=== PATIENT | female | born 1980 | race Caucasian/White ===

== ENCOUNTER 2016-11-29 15:58 | Emergency (ER) | payer OTHER ==
[~2016-11-29 15:58] MED LIST: AMLO5TAB4 PO; HYDR-548 PO; SUMA50TA PO
== END 2016-11-30 16:00 | disposition left against medical advice (07) ==
LOC: ER 11-30 10:22
DX: R05 Cough (principal); Z53.21 Procedure and treatment not carried out due to patient leaving prior to being seen by health care provider

== ENCOUNTER 2017-01-19 17:01 | Emergency (ER) | payer OTHER ==
[~2017-01-19] VITALS: Ht 170.2 cm; Wt 108.0 kg
--- NOTE | 2017-01-19 17:38 | NUR ---
Pt evaluated by MD for VYAS, med refill provided. Patient discharged home in stable conditon. Written and verbal after care instructions given. Patient verbalizes understanding of instructions.
[2017-01-19 17:40] VITALS: BP 135/77
== END 2017-01-19 17:41 | disposition home or self-care (01) ==
LOC: ER 17:03
DX: Z76.0 Encounter for issue of repeat prescription (principal); I10 Essential (primary) hypertension; G43.909 Migraine, unspecified, not intractable, without status migrainosus; Z88.6 Allergy status to analgesic agent; Z88.8 Allergy status to other drugs, medicaments and biological substances
CPT/HCPCS: A4663

== ENCOUNTER 2017-02-21 15:18 | Emergency (ER) | payer OTHER ==
[~2017-02-21] VITALS: Ht 170.2 cm; Wt 93.0 kg
--- NOTE | 2017-02-21 15:50 | NUR ---
DR SIMPSON AT THE BEDSIDE FOR EVAL AND EXAM.
--- NOTE | 2017-02-21 16:07 | NUR ---
Patient discharged to home in stable conditon. Written and verbal after care instructions given. Patient verbalizes understanding of instructions.
[2017-02-21 16:15] VITALS: BP 102/79
== END 2017-02-21 16:15 | disposition home or self-care (01) ==
LOC: ER 15:20
DX: S83.92XA Sprain of unspecified site of left knee, initial encounter (principal); M25.462 Effusion, left knee; I10 Essential (primary) hypertension; G43.909 Migraine, unspecified, not intractable, without status migrainosus; Z88.6 Allergy status to analgesic agent; Z88.8 Allergy status to other drugs, medicaments and biological substances; W18.30XA Fall on same level, unspecified, initial encounter; Y93.89 Activity, other specified; Y99.8 Other external cause status; Y92.89 Other specified places as the place of occurrence of the external cause
CPT/HCPCS: A4663

== ENCOUNTER 2017-02-23 17:05 | Emergency (ER) | payer OTHER ==
[~2017-02-23] VITALS: Ht 167.6 cm; Wt 90.7 kg
[2017-02-23] MEDS ORDERED: IBUPROFEN 600 MG TABLET PO ONE (17:30)
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
[2017-02-23] MEDS ORDERED: IBUPROFEN 600 MG TABLET ONE (18:38)
--- NOTE | 2017-02-23 18:39 | NUR ---
Pt given d/c instructions, verbalized understanding.
== END 2017-02-23 18:42 | disposition home or self-care (01) ==
LOC: ER 17:06
DX: S83.92XA Sprain of unspecified site of left knee, initial encounter (principal); I10 Essential (primary) hypertension; G43.909 Migraine, unspecified, not intractable, without status migrainosus; Z88.6 Allergy status to analgesic agent; Z88.8 Allergy status to other drugs, medicaments and biological substances; V89.2XXA Person injured in unspecified motor-vehicle accident, traffic, initial encounter; Y93.89 Activity, other specified; Y99.8 Other external cause status; Y92.89 Other specified places as the place of occurrence of the external cause
CPT/HCPCS: 73562; A4663

== ENCOUNTER 2017-03-26 17:26 | Emergency (ER) | payer OTHER ==
[~2017-03-26] VITALS: Ht 170.2 cm; Wt 103.4 kg
[2017-03-26] MEDS ORDERED: AMLO5TAB4 PO (17:37)
--- NOTE | 2017-03-26 18:17 | NUR ---
Patient discharged to home in stable conditon. Written and verbal after care instructions given. Patient verbalizes understanding of instructions.
== END 2017-03-26 18:18 | disposition home or self-care (01) ==
LOC: ER 17:27
DX: G43.909 Migraine, unspecified, not intractable, without status migrainosus (principal); K04.7 Periapical abscess without sinus; I10 Essential (primary) hypertension; Z88.6 Allergy status to analgesic agent; Z88.8 Allergy status to other drugs, medicaments and biological substances
CPT/HCPCS: A4663

== ENCOUNTER 2017-05-24 17:46 | Emergency (ER) | payer OTHER ==
[~2017-05-24] VITALS: Ht 167.6 cm; Wt 103.4 kg
[~2017-05-24 17:46] MED LIST changes: -HYDR-548 PO; -SUMA50TA PO
[2017-05-24] MEDS ORDERED: SUMA50TA PO (18:10)
--- NOTE | 2017-05-24 18:29 | NUR ---
Patient discharged to home in stable conditon. Written and verbal after care instructions given to patient. Patient verbalizes understanding of instructions.
== END 2017-05-24 18:31 | disposition home or self-care (01) ==
LOC: ER 17:46
DX: G43.909 Migraine, unspecified, not intractable, without status migrainosus (principal); I10 Essential (primary) hypertension; Z88.6 Allergy status to analgesic agent; Z88.8 Allergy status to other drugs, medicaments and biological substances
CPT/HCPCS: 96372 ×2; 99284; A4663; J1200; J3030

== ENCOUNTER 2017-06-11 17:23 | Emergency (ER) | payer OTHER ==
[~2017-06-11] VITALS: Ht 167.6 cm; Wt 108.0 kg
[~2017-06-11 17:23] MED LIST changes: -AMLO5TAB4 PO; +SUMA50TA PO
[2017-06-11] MEDS ORDERED: AMOX500C2 PO (17:48)
--- NOTE | 2017-06-11 18:25 | NUR ---
Patient discharged to home in stable conditon. Written and verbal after care instructions given. Patient verbalizes understanding of instructions.pt walks in steady gait. pt not driving. family member taking pt home
== END 2017-06-11 18:29 | disposition home or self-care (01) ==
LOC: ER 17:23
DX: K08.89 Other specified disorders of teeth and supporting structures (principal); I10 Essential (primary) hypertension; G43.909 Migraine, unspecified, not intractable, without status migrainosus; Z88.6 Allergy status to analgesic agent
CPT/HCPCS: A4663; J1170; J2405

== ENCOUNTER 2017-09-11 12:23 | Emergency (ER) | payer OTHER ==
[~2017-09-11] VITALS: Ht 167.6 cm; Wt 108.0 kg
[~2017-09-11 12:23] MED LIST changes: +AMOX500C2 PO
[2017-09-11] MEDS ORDERED: ALBUTEROL SULFATE 2.5 MG/3 ML NEBU NEB ONE (13:00)
[2017-09-11] MEDS ORDERED: ALBUTEROL SULFATE 2.5 MG/3 ML NEBU ONE (13:20)
--- NOTE | 2017-09-11 13:54 | NUR ---
Patient discharged to home in stable conditon. Written and verbal after care instructions given. Patient verbalizes understanding of instructions.
== END 2017-09-11 13:54 | disposition home or self-care (01) ==
LOC: ER 12:23
DX: J40 Bronchitis, not specified as acute or chronic (principal); Z88.5 Allergy status to narcotic agent; Z87.891 Personal history of nicotine dependence; G43.909 Migraine, unspecified, not intractable, without status migrainosus
CPT/HCPCS: 71045; A4663

== ENCOUNTER 2018-02-16 14:48 | Emergency (ER) | payer OTHER ==
[~2018-02-16] VITALS: Ht 167.6 cm; Wt 106.6 kg
--- NOTE | 2018-02-16 16:17 | NUR ---
Pt resting in [place] with NAD noted, pending MSE.
--- NOTE | 2018-02-16 18:15 | NUR ---
pt still awaiting for md mcintosh.
--- NOTE | 2018-02-16 18:59 | NUR ---
mse completed, pt d/c'd home, aci.rx x5 given. pt ambulated w/o diff/took all belongings.
[2018-02-16 19:01] VITALS: BP 128/72
== END 2018-02-16 19:02 | disposition home or self-care (01) ==
LOC: ER 14:51
DX: M54.9 Dorsalgia, unspecified (principal); Z90.89 Acquired absence of other organs; Z88.5 Allergy status to narcotic agent; Z88.8 Allergy status to other drugs, medicaments and biological substances
CPT/HCPCS: 99281; A4663

== ENCOUNTER 2018-06-14 11:38 | Emergency (ER) | payer OTHER ==
[~2018-06-14] VITALS: Ht 170.2 cm; Wt 105.2 kg
--- NOTE | 2018-06-14 12:01 | NUR ---
Patient discharged to home in stable conditon. Written and verbal after care instructions given. Patient verbalizes understanding of instructions.pt waks in steady gait.
== END 2018-06-14 12:03 | disposition home or self-care (01) ==
LOC: ER 11:38
DX: R51 Headache (principal); Z88.5 Allergy status to narcotic agent; Z88.8 Allergy status to other drugs, medicaments and biological substances; Z90.89 Acquired absence of other organs
CPT/HCPCS: 99283; A4663

== ENCOUNTER 2018-06-26 16:59 | Emergency (ER) | payer OTHER ==
[~2018-06-26] VITALS: Ht 170.2 cm; Wt 105.2 kg
--- NOTE | 2018-06-26 17:51 | NUR ---
DR SIMPSON AT THE BEDSIDE FOR MSE.
--- NOTE | 2018-06-26 18:05 | NUR ---
Patient discharged to home in stable conditon. Written and verbal after care instructions given. Patient verbalizes understanding of instructions.
[2018-06-26 18:07] VITALS: BP 122/86
== END 2018-06-26 18:07 | disposition home or self-care (01) ==
LOC: ER 17:01
DX: J32.9 Chronic sinusitis, unspecified (principal); Z88.5 Allergy status to narcotic agent; Z88.8 Allergy status to other drugs, medicaments and biological substances; Z90.89 Acquired absence of other organs
CPT/HCPCS: A4663

== ENCOUNTER 2018-10-01 16:57 | Emergency (ER) | payer OTHER ==
[~2018-10-01] VITALS: Ht 170.2 cm; Wt 105.2 kg
[2018-10-01] MEDS ORDERED: SUMATRIPTAN SUCCINATE 6 MG/0.5 ML VIAL SQ ONE ×2 (17:45)
--- NOTE | 2018-10-01 17:47 | NUR ---
PT WAS EVALUATED BY DR JACOBS. PT WAS D/C'd TO HOME. D/C INSTRUCTIONS GIVEN TO THE PT.
[2018-10-01 17:48] VITALS: BP 132/75
== END 2018-10-01 17:49 | disposition home or self-care (01) ==
LOC: ER 16:59
DX: G43.909 Migraine, unspecified, not intractable, without status migrainosus (principal); Z88.5 Allergy status to narcotic agent; Z88.8 Allergy status to other drugs, medicaments and biological substances
CPT/HCPCS: 96372; 99283; J3030; A4663

== ENCOUNTER 2018-11-29 17:43 | Emergency (ER) | payer OTHER ==
[~2018-11-29] VITALS: Ht 170.2 cm; Wt 103.4 kg
--- NOTE | 2018-11-29 18:15 | NUR ---
Urine specimen was requested, pending MD evaluation@this time
--- NOTE | 2018-11-29 18:54 | NUR ---
Patient is changing to hospital gown@this time, for possible incision and drainage of abscess?? to groin area.
[2018-11-29] MEDS ORDERED: LIDOCAINE HCL 1% 20 ML VIAL TP ONE (19:00)
[2018-11-29] MEDS ORDERED: SULFAMETH/TRIMETH 800/160 MG TABLET PO ONE (19:15)
--- NOTE | 2018-11-29 19:15 | NUR ---
Hands off report given to JOANIE Edwards
[2018-11-29] MEDS ORDERED: SULFAMETH/TRIMETH 800/160 MG TABLET ONE (19:38)
--- NOTE | 2018-11-29 19:40 | NUR ---
Patient discharged to home in stable conditon. Written and verbal after care instructions given. Patient verbalizes understanding of instructions. WAKED OUT OF ER WITH NO DISTRESS NOTED
[2018-11-29 19:41] VITALS: BP 150/99
== END 2018-11-29 19:42 | disposition home or self-care (01) ==
LOC: ER 17:47
DX: N75.1 Abscess of Bartholin's gland (principal); Z88.5 Allergy status to narcotic agent; Z88.8 Allergy status to other drugs, medicaments and biological substances; Z90.89 Acquired absence of other organs
CPT/HCPCS: 56420; 99283; J3490; A4663

== ENCOUNTER 2018-12-21 14:13 | Emergency (ER) | payer OTHER ==
[~2018-12-21] VITALS: Ht 167.6 cm; Wt 98.9 kg
--- NOTE | 2018-12-21 14:30 | NUR ---
PT A/OX4, PRESENTS TO THE ER C/O HEADACHE. PT REPORTS HX OF MIGRAINES, PAIN IS NON-PROVOKED, ACHING IN QUALITY, DOES NOT RADIATE, 6/10, CONSTANT. PT DENIES LIGHT SENSITIVITY. SECONDARY COMPLAINT: ANXIETY, LACK OF SLEEP. VSS. PT DENIES C/P, SOB, N/V/D, DIZZINESS, HEADACHE.
--- NOTE | 2018-12-21 14:33 | NUR ---
NO FACIAL DROOP, SMILE EQUAL, NO HEMILATERAL WEAKNESS, HAND PHONE SCREENER EQUAL, PT IS ABLE TO SELF-AMBULATE W/O DIFFICULTY, NO SLURRED SPEECH.
--- NOTE | 2018-12-21 14:34 | NUR ---
DEJA CASTILLO AT BEDSIDE FOR MSE.
[2018-12-21] MEDS ORDERED: HYDROCODONE/APAP 5-325MG TABLET PO ONE (14:45)
[2018-12-21] MEDS ORDERED: ONDANSETRON ODT 4 MG TAB.RAPDIS SL ONE (14:45)
[2018-12-21] MEDS ORDERED: ONDANSETRON ODT 4 MG TAB.RAPDIS ONE (14:48)
[2018-12-21] MEDS ORDERED: HYDROCODONE/APAP 5-325MG TABLET ONE (14:49)
[2018-12-21 14:51] VITALS: BP 112/62
--- NOTE | 2018-12-21 14:51 | NUR ---
Patient discharged to home in stable conditon. Written and verbal after care instructions given. Patient verbalizes understanding of instructions. PT D/C W/ PRESCRIPTIONS. PT SELF-AMBULATED W/O DIFFICULTY. ALL BELONGINGS W/ PT. PT STATES SHE WILL WALK HOME.
== END 2018-12-21 14:52 | disposition home or self-care (01) ==
LOC: ER 14:13
DX: G43.909 Migraine, unspecified, not intractable, without status migrainosus (principal); Z76.0 Encounter for issue of repeat prescription; Z88.5 Allergy status to narcotic agent; Z88.8 Allergy status to other drugs, medicaments and biological substances; Z90.89 Acquired absence of other organs
CPT/HCPCS: A4663; Q0162

== ENCOUNTER 2019-02-13 13:49 | Emergency (ER) | payer OTHER ==
[~2019-02-13] VITALS: Ht 170.2 cm; Wt 103.4 kg
[2019-02-13 14:13] VITALS: BP 128/95
--- NOTE | 2019-02-13 14:13 | NUR ---
Patient discharged to home in stable conditon. Written and verbal after care instructions given. Patient verbalizes understanding of instructions.
== END 2019-02-13 14:14 | disposition home or self-care (01) ==
LOC: ER 13:49
DX: G43.909 Migraine, unspecified, not intractable, without status migrainosus (principal); Z76.0 Encounter for issue of repeat prescription; Z88.5 Allergy status to narcotic agent; Z88.8 Allergy status to other drugs, medicaments and biological substances; Z90.89 Acquired absence of other organs
CPT/HCPCS: A4663

== ENCOUNTER 2019-03-11 02:49 | Emergency (ER) | payer OTHER ==
[~2019-03-11] VITALS: Ht 170.2 cm; Wt 103.4 kg
[2019-03-11] MEDS ORDERED: SUMATRIPTAN 50 MG (03:10)
[2019-03-11] MEDS ORDERED: SERTRALINE HCL 25 MG TABLET (03:10)
[2019-03-11] MEDS ORDERED: HYDROMORPHONE 1 MG/1 ML DISP.SYRIN ONE (03:26)
[2019-03-11] MEDS ORDERED: ONDANSETRON 4 MG/2 ML VIAL ONE (03:26)
[2019-03-11] MEDS ORDERED: HYDROMORPHONE 1 MG/1 ML DISP.SYRIN IM ONE (03:30)
[2019-03-11] MEDS ORDERED: ONDANSETRON 4 MG/2 ML VIAL IM ONE (03:30)
--- NOTE | 2019-03-11 03:40 | NUR ---
PT IS ALERT AND ORIENTED TIME FOUR OVERALL APPEARANCES FAIR C/O WISDOM TEETH PAIN WILL GO TO THE DENTIST TUESDAY THIS HAPPEN AT 2 AM AFTER EATING HARD TOAST PAIN LEVEL 10
--- NOTE | 2019-03-11 03:47 | NUR ---
WAS MED TIME ONE WITH PAULINE AND KRISTAN DENIES ALLERGIES MEDS TEACHING GIVEN DID WANTS TO WAIT 30 MINUTES BUT DID STATE SHE WOULD WAIT FOR UBER TO TAKE HER HOME
[2019-03-11 03:49] VITALS: BP 148/80
== END 2019-03-11 03:51 | disposition home or self-care (01) ==
LOC: ER 02:49
DX: G43.909 Migraine, unspecified, not intractable, without status migrainosus (principal); K08.89 Other specified disorders of teeth and supporting structures; Z90.89 Acquired absence of other organs; Z79.899 Other long term (current) drug therapy
CPT/HCPCS: 96372 ×2; 99283; J1170; J2405; A4663

== ENCOUNTER 2019-04-24 01:24 | Emergency (ER) | payer OTHER ==
[~2019-04-24] VITALS: Ht 167.6 cm; Wt 108.0 kg
[~2019-04-24 01:24] MED LIST changes: -AMOX500C2 PO; +SERTRALINE HCL 25 MG TABLET; -SUMA50TA PO; +SUMATRIPTAN 50 MG
--- NOTE | 2019-04-24 01:45 | NUR ---
Patient ambulated with stable gait. Speech is clear, speaks in complete sentences. No neuro deficits noted. Patient came for c/o a tampon possibly lodged/stuck in her vagina for a few weeks now. Additionally she has been c/o toothache on the right side for 8 weeks now. Respiratory even and unlabored, no cough no sob. No cardiovascular distress noted, all pulses palpable. No GI/ distress noted. Patient in bed at lowest position, sr upx2, call light within reach. Fall precautions implemented per protocol.
[2019-04-24 01:55] LABS: *BILIRUBIN,URIN NEGATIVE (NEGATIVE); *BLOOD, URINE NEGATIVE (NEGATIVE); *CLARITY,URINE CLEAR (CLEAR); *COLOR,URINE YELLOW (YELLOW); *KETONES,URINE NEGATIVE (NEGATIVE); *UROBILINOGEN,URINE 0.2 E.U./dl (NORMAL); LEUKOCYTE ESTERASE ,URINE NEGATIVE (NEGATIVE); NITRITE, URINE NEGATIVE (NEGATIVE); PH,URINE 5.5 (5.0-8.0); UGLUCOSE NEGATIVE (NEGATIVE)
--- NOTE | 2019-04-24 01:56 | NUR ---
ERMD at bedside for MSE
[2019-04-24 01:57] LABS: *URINE HCG, QUAL NEGATIVE (NEGATIVE)
--- NOTE | 2019-04-24 02:18 | NUR ---
Female delivery driver, JOANIE Galvez, accompanied female patient for Dr. Garcia. Addendum: 04/24/19 at 0219 by ASHANTI for pelvic exam
--- NOTE | 2019-04-24 02:21 | NUR ---
Sasha matthew in ED - 04/24/19 at 0223 by ASHANTI Patient is medically cleared to be booked. Patient discharged with [facility] in stable conditon. Written and verbal after care instructions given. Patient verbalizes understanding of instructions.
--- NOTE | 2019-04-24 02:37 | NUR ---
Patient discharged to home in stable conditon. Written and verbal after care instructions given. Patient verbalizes understanding of instructions. Patient ambulated with stable gait.
[2019-04-24 03:05] VITALS: BP 142/81
== END 2019-04-24 02:37 | disposition home or self-care (01) ==
LOC: ER 01:31
DX: N76.0 Acute vaginitis (principal); G43.909 Migraine, unspecified, not intractable, without status migrainosus; Z88.8 Allergy status to other drugs, medicaments and biological substances; Z79.899 Other long term (current) drug therapy; Z90.89 Acquired absence of other organs
CPT/HCPCS: 84703; 87210; A4663

== ENCOUNTER 2019-06-26 09:22 | Emergency (ER) | payer OTHER ==
[~2019-06-26] VITALS: Ht 167.6 cm; Wt 106.6 kg
[2019-06-26] MEDS ORDERED: LORAZEPAM 2 MG/1 ML VIAL ONE (09:38)
--- NOTE | 2019-06-26 09:43 | NUR ---
pt ambulated with stable gait, c/o migraine with nausea and vomiting. speech clear able to make needs known, a&o x3. no acute neuro deficits noted. Breathing even and unlabored, no SOB noted. no cardiovascular distress noted. pulses palpable. cap refill <3 sec. Denies any distress. Bed low, call light within reach, siderails up x2, fall precautions implemented per protocol
[2019-06-26] MEDS ORDERED: IV NORMAL SALINE 1000 ML BAG IV ONE (09:45)
[2019-06-26] MEDS ORDERED: LORAZEPAM 2 MG/1 ML VIAL IV ONE (09:45)
--- NOTE | 2019-06-26 11:24 | NUR ---
Patient discharged to home in stable conditon. Written and verbal after care instructions given. pt made aware not to drive. Patient verbalizes understanding of instructions. pt ambulated in stable gait. denies any nausea, vomiting, or discomfort
[2019-06-26 11:40] VITALS: BP 129/81
== END 2019-06-26 11:24 | disposition home or self-care (01) ==
LOC: ER 09:22
DX: G43.909 Migraine, unspecified, not intractable, without status migrainosus (principal); Z90.89 Acquired absence of other organs; Z88.8 Allergy status to other drugs, medicaments and biological substances; Z79.899 Other long term (current) drug therapy
CPT/HCPCS: 96374; 99283; J2060; A4663; J7030

== ENCOUNTER 2019-10-18 11:00 | Emergency (ER) | payer OTHER ==
[~2019-10-18] VITALS: Ht 167.6 cm; Wt 106.6 kg
--- NOTE | 2019-10-18 11:27 | NUR ---
Dr Garcia at the bedside for MSE.
[2019-10-18 11:50] LABS: BASOPHILS % (AUTO) 0.6 % (0.0-2.0); EOSINOPHILS # (AUTO) 0.2 K/uL (0.0-0.7); EOSINOPHILS % (AUTO) 1.9 % (0.0-7.0); HEMATOCRIT 41.5 % (31.2-41.9); HEMOGLOBIN 14.2 g/dL (10.9-14.3); LYMPHOCYTES # (AUTO) 3.2 K/uL (20.0-40.0); MEAN CORPUSCULAR HEMOGLOBIN 27.8 uug (24.7-32.8); MEAN CORPUSCULAR HGB CONC 34 g/dL (32.3-35.6); MEAN CORPUSCULAR VOLUME 81.1 fL (75.5-95.3); MONOCYTES # (AUTO) 0.7 K/uL (2.0-10.0); MONOCYTES % (AUTO) 7.9 % (0.0-11.0); NEUTROPHILS # (AUTO) 4.2 K/uL (1.8-8.9); NEUTROPHILS % (AUTO) 50.6 % (38.5-71.5); PLATELET COUNT (AUTO) 153 K/uL (179-408); RED BLOOD CELL COUNT(AUTO) 5.12 MIL/uL (3.63-4.92); WHITE BLOOD COUNT (AUTO) 8.3 K/uL (3.8-11.8)
[2019-10-18 11:55] LABS: CREATININE 0.7 mg/dL (0.6-1.3); POTASSIUM 3.8 mmol/L (3.5-5.1)
[2019-10-18 12:01] LABS: BILIRUBIN,DIRECT 0.1 mg/dL (0.0-0.2); BILIRUBIN,TOTAL 0.5 mg/dL (0.2-1.0); TOTAL PROTEIN, SERUM 7.5 g/dL (6.4-8.2)
--- NOTE | 2019-10-18 12:38 | NUR ---
Patient discharged to home in stable conditon. Written and verbal after care instructions given. Patient verbalizes understanding of instructions.
[2019-10-18 12:39] VITALS: BP 115/78
== END 2019-10-18 12:40 | disposition home or self-care (01) ==
LOC: ER 11:00
DX: S13.4XXA Sprain of ligaments of cervical spine, initial encounter (principal); H81.10 Benign paroxysmal vertigo, unspecified ear; R20.2 Paresthesia of skin; Z90.89 Acquired absence of other organs; Z88.8 Allergy status to other drugs, medicaments and biological substances; Z79.899 Other long term (current) drug therapy; X58.XXXA Exposure to other specified factors, initial encounter; Y92.89 Other specified places as the place of occurrence of the external cause; Y93.89 Activity, other specified; Y99.8 Other external cause status
CPT/HCPCS: 36415; 85025; 93005; A4663

== ENCOUNTER 2020-01-29 02:30 | Emergency (ER) | payer OTHER ==
[~2020-01-29] VITALS: Ht 167.6 cm; Wt 102.1 kg
--- NOTE | 2020-01-29 03:00 | NUR ---
Dr. Jordan at bedside for MSE
--- NOTE | 2020-01-29 03:07 | NUR ---
Patient discharged to home in stable condition. Written and verbal after care instructions given. Patient verbalizes understanding of instructions. Stressed follow up or return to ER for worsening s/s. Patient ambulating with steady gait. NAD noted
[2020-01-29 03:13] VITALS: BP 124/70
== END 2020-01-29 03:08 | disposition home or self-care (01) ==
LOC: ER 02:35
DX: H11.32 Conjunctival hemorrhage, left eye (principal); G43.909 Migraine, unspecified, not intractable, without status migrainosus
CPT/HCPCS: A4663

== ENCOUNTER 2020-03-13 12:45 | Emergency (ER) | payer OTHER ==
[~2020-03-13] VITALS: Ht 167.6 cm; Wt 87.1 kg
--- NOTE | 2020-03-13 12:55 | NUR ---
Dr. Garcia at bedside for MSE
[2020-03-13] MEDS ORDERED: IV NORMAL SALINE 1000 ML BAG IV ONE ×2 (13:15→14:15)
[2020-03-13] MEDS ORDERED: METOCLOPRAMIDE HCL 10 MG/2 ML VIAL ONE (13:15)
[2020-03-13] MEDS ORDERED: METOCLOPRAMIDE HCL 10 MG/2 ML VIAL IV ONE (13:15)
[2020-03-13] MEDS ORDERED: KETOROLAC TROMETHAMINE 30 MG INJ IVP ONE (13:15)
[2020-03-13] MEDS ORDERED: ONDANSETRON 4 MG/2 ML VIAL IV ONE (13:15)
[2020-03-13] MEDS ORDERED: diphenhydrAMINE 50 MG/1 ML VIAL ONE ×2 (13:15→13:32)
[2020-03-13] MEDS ORDERED: KETOROLAC TROMETHAMINE 30 MG INJ ONE ×2 (13:15→13:31)
[2020-03-13] MEDS ORDERED: diphenhydrAMINE 50 MG/1 ML VIAL IV ONE (13:15)
[2020-03-13] MEDS ORDERED: MORPHINE SULFATE 4 MG/1 ML DISP.SYRIN ONE (13:58)
[2020-03-13] MEDS ORDERED: MORPHINE SULFATE 4 MG/1 ML DISP.SYRIN IV ONE (14:00)
--- NOTE | 2020-03-13 15:21 | NUR ---
IV removed. Catheter intact and site benign. Pressure and 4x4 gauze applied to site. No bleeding noted.Patient discharged to home in stable condition. Written and verbal after care instructions given. Patient verbalizes understanding of instructions. Stressed follow up or return to ER for worsening s/s. Patient ambulating with steady gait. NAD noted
[2020-03-13 15:24] VITALS: BP 143/83
== END 2020-03-13 15:21 | disposition home or self-care (01) ==
LOC: ER 12:45
DX: G43.909 Migraine, unspecified, not intractable, without status migrainosus (principal); R11.2 Nausea with vomiting, unspecified; T43.225A Adverse effect of selective serotonin reuptake inhibitors, initial encounter; Y92.89 Other specified places as the place of occurrence of the external cause; R03.0 Elevated blood-pressure reading, without diagnosis of hypertension
CPT/HCPCS: 96361; 96374; 96375; 99284; J1200; J1885; J2270; J2765; A4663; J7030

== ENCOUNTER 2020-07-07 12:24 | Emergency (ER) | payer OTHER ==
[~2020-07-07] VITALS: Ht 167.6 cm; Wt 98.9 kg
[2020-07-07] MEDS ORDERED: MAGNESIUM SULFATE/D5W 100 ML IV SCH (13:15)
[2020-07-07] MEDS ORDERED: METOCLOPRAMIDE HCL 10 MG/2 ML VIAL IV ONE (13:15)
[2020-07-07] MEDS ORDERED: IV NORMAL SALINE 1000 ML BAG IV ONE (13:15)
[2020-07-07] MEDS ORDERED: diphenhydrAMINE 50 MG/1 ML VIAL IV ONE (13:15)
[2020-07-07] MEDS ORDERED: KETOROLAC TROMETHAMINE 15 MG INJ IVP ONE (13:15)
[2020-07-07] MEDS ORDERED: METOCLOPRAMIDE HCL 10 MG/2 ML VIAL ONE (13:25)
[2020-07-07] MEDS ORDERED: diphenhydrAMINE 50 MG/1 ML VIAL ONE (13:25)
[2020-07-07] MEDS ORDERED: KETOROLAC TROMETHAMINE 15 MG INJ ONE (13:25)
[2020-07-07] MEDS ORDERED: MAGNESIUM SULFATE/D5W 100 ML ONE (13:26)
[2020-07-07 13:27] LABS: BASOPHILS # (AUTO) 0.1 K/uL (0.0-8.0); BASOPHILS % (AUTO) 0.7 % (0.0-2.0); EOSINOPHILS # (AUTO) 0.1 K/uL (0.0-0.7); EOSINOPHILS % (AUTO) 1.2 % (0.0-7.0); HEMATOCRIT 41.6 % (31.2-41.9); HEMOGLOBIN 14.4 g/dL (10.9-14.3); LYMPHOCYTES % (AUTO) 19.2 % (20.5-51.5); MEAN CORPUSCULAR HEMOGLOBIN 27.9 uug (24.7-32.8); MEAN CORPUSCULAR HGB CONC 35 g/dL (32.3-35.6); MEAN CORPUSCULAR VOLUME 80.4 fL (75.5-95.3); MONOCYTES # (AUTO) 0.6 K/uL (2.0-10.0); MONOCYTES % (AUTO) 5.5 % (0.0-11.0); NEUTROPHILS # (AUTO) 7.5 K/uL (1.8-8.9); NEUTROPHILS % (AUTO) 73.4 % (38.5-71.5); PLATELET COUNT (AUTO) 199 K/uL (179-408); RED BLOOD CELL COUNT(AUTO) 5.17 MIL/uL (3.63-4.92); WHITE BLOOD COUNT (AUTO) 10.2 K/uL (3.8-11.8)
[2020-07-07 13:34] LABS: CREATININE 0.6 mg/dL (0.6-1.3); POTASSIUM 4.3 mmol/L (3.5-5.1)
[2020-07-07 13:49] LABS: *URINE HCG, QUAL NEG (NEGATIVE)
[2020-07-07 13:58] LABS: *AMPHETAMINE, URINE NEGATIVE (NEGATIVE); *CANNABINOID, URINE NEGATIVE (NEGATIVE); *COCCAINE, URINE NEGATIVE (NEGATIVE); *PHENCYCLIDINE SCREEN,URINE NEGATIVE (NEGATIVE)
[2020-07-07 14:15] LABS: *OPIATE, URINE NEGATIVE (NEGATIVE)
--- NOTE | 2020-07-07 15:27 | NUR ---
Patient discharged to home in stable condition. Written and verbal after care instructions given. Patient verbalizes understanding of instructions. Stressed follow up or return to ER for worsening s/s.
[2020-07-07 15:29] VITALS: BP 127/74
== END 2020-07-07 15:29 | disposition home or self-care (01) ==
LOC: ER 12:24
DX: G43.909 Migraine, unspecified, not intractable, without status migrainosus (principal); R03.0 Elevated blood-pressure reading, without diagnosis of hypertension
CPT/HCPCS: 36415; 80048; 80307; 84703; 85025; 96365; 96375; 99284; J1200; J2765; J3475; A4663; J1885

== ENCOUNTER 2021-07-02 07:50 | Emergency (ER) | payer OTHER ==
[~2021-07-02] VITALS: Ht 170.2 cm; Wt 95.3 kg
[2021-07-02] MEDS ORDERED: NEOMYCIN SULFATE (08:00)
[2021-07-02] MEDS ORDERED: CIPR7.5D RIGHT EAR (08:27)
== END 2021-07-02 08:32 | disposition home or self-care (01) ==
LOC: ER 07:50
DX: H60.91 Unspecified otitis externa, right ear (principal)
CPT/HCPCS: A4663

== ENCOUNTER 2022-05-23 13:44 | Emergency (ER) | payer OTHER ==
[~2022-05-23] VITALS: Ht 165.1 cm; Wt 108.9 kg
[~2022-05-23 13:44] MED LIST changes: +CIPR7.5D RIGHT EAR; +NEOMYCIN SULFATE
[2022-05-23] MEDS ORDERED: IV NORMAL SALINE 1000 ML BAG IV ONE (14:15)
[2022-05-23] MEDS ORDERED: MORPHINE SULFATE 2 MG/1 ML DISP.SYRIN IV ONE (14:15)
[2022-05-23] MEDS ORDERED: ONDANSETRON 4 MG/2 ML VIAL IV ONE (14:15)
[2022-05-23 14:31] LABS: *BILIRUBIN,URIN NEGATIVE (NEGATIVE); *BLOOD, URINE 2+ (NEGATIVE); *CLARITY,URINE CLEAR (CLEAR); *COLOR,URINE YELLOW (YELLOW); *KETONES,URINE NEGATIVE (NEGATIVE); *UROBILINOGEN,URINE 0.2 E.U./dl (NORMAL); LEUKOCYTE ESTERASE ,URINE NEGATIVE (NEGATIVE); NITRITE, URINE NEGATIVE (NEGATIVE); UGLUCOSE NEGATIVE (NEGATIVE)
[2022-05-23] MEDS ORDERED: ONDANSETRON 4 MG/2 ML VIAL ONE (14:34)
[2022-05-23] MEDS ORDERED: MORPHINE SULFATE 4 MG/1 ML DISP.SYRIN ONE (14:35)
[2022-05-23 14:37] LABS: *URINE HCG, QUAL NEGATIVE (NEGATIVE)
[2022-05-23 14:43] LABS: WBC,URINE 0-3 /HPF (0-3)
[2022-05-23 14:44] LABS: BACTERIA,URINE NONE SEEN /HPF (NONE SEEN); SQUAMOUS EPITHELIAL CELL,UR FEW /HPF (NONE SEEN)
[2022-05-23 14:57] LABS: HEMATOCRIT 40.4 % (31.2-41.9); MEAN CORPUSCULAR HEMOGLOBIN 27.8 uug (24.7-32.8); MEAN CORPUSCULAR VOLUME 80.6 fL (75.5-95.3); PLATELET COUNT (AUTO) 193 K/uL (179-408)
[2022-05-23 15:22] LABS: BILIRUBIN,DIRECT 0.1 mg/dL (0.0-0.2); BILIRUBIN,TOTAL 0.6 mg/dL (0.2-1.0); CREATININE 0.9 mg/dL (0.6-1.3); POTASSIUM 3.7 mmol/L (3.5-5.1); TOTAL PROTEIN, SERUM 7.6 g/dL (6.4-8.2)
[2022-05-23] MEDS ORDERED: KETOROLAC TROMETHAMINE 30 MG INJ ONE (16:43)
[2022-05-23] MEDS ORDERED: TAMSULOSIN HCL 0.4 MG CAP.SR.24H ONE (16:44)
[2022-05-23] MEDS ORDERED: TAMSULOSIN HCL 0.4 MG CAP.SR.24H PO ONE (16:45)
[2022-05-23] MEDS ORDERED: KETOROLAC TROMETHAMINE 30 MG INJ IVP ONE (16:45)
[2022-05-23] MEDS ORDERED: TAMS-3 PO (16:52)
[2022-05-23] MEDS ORDERED: HYDR-4209 PO (16:52)
[2022-05-23] MEDS ORDERED: ONDA4TAB11 PO (16:52)
--- NOTE | 2022-05-23 16:58 | NUR ---
Pt. arrived with cc of left-sided flank pain, located from the groin around the abd radiating to the back. Ordered rx administered, will continue to monitor and reassess pain.
--- NOTE | 2022-05-23 17:15 | NUR ---
Pt. d/c to home in stable condition. No distress noted. Upon reassessment, patient stated her pain has been alleviated, rated 3-4/10. Normal physical mobility restored, no guarding and withdrawal from touch observed. D/c instructions were given, pt. verbalized understanding.
[2022-05-23 17:43] VITALS: BP 132/89
== END 2022-05-23 17:15 | disposition home or self-care (01) ==
LOC: ER 13:46
DX: N13.2 Hydronephrosis with renal and ureteral calculous obstruction (principal); R11.0 Nausea
CPT/HCPCS: 99284; 74176; 96374; 96361; 96375; 80076; 80048; 81001; 84703; 83690; 85025; 36415; J1885; J2405; J2270; J7040; A4663

== ENCOUNTER 2022-07-05 09:11 | Emergency (ER) | payer OTHER ==
[~2022-07-05] VITALS: Ht 167.6 cm; Wt 99.8 kg
[~2022-07-05 09:11] MED LIST changes: +HYDR-4209 PO; +ONDA4TAB11 PO; +TAMS-3 PO
--- NOTE | 2022-07-05 09:22 | NUR ---
Dr Kramer at the bedside for MSE.
[2022-07-05] MEDS ORDERED: TRIA15OI9 TP (09:32)
--- NOTE | 2022-07-05 09:46 | NUR ---
Gave pt RX and d/c instructions, pt verbalized understanding.
== END 2022-07-05 09:47 | disposition home or self-care (01) ==
LOC: ER 09:11
DX: L25.9 Unspecified contact dermatitis, unspecified cause (principal)
CPT/HCPCS: A4663

== ENCOUNTER 2023-08-19 09:46 | Emergency (ER) | payer OTHER ==
[~2023-08-19] VITALS: Ht 167.6 cm; Wt 99.8 kg
[~2023-08-19 09:46] MED LIST changes: +TRIA15OI9 TP
[2023-08-19 10:46] VITALS: BP 138/74; TEMP 98; O2SAT 96
== END 2023-08-19 10:47 | disposition home or self-care (01) ==
LOC: ER 09:46
DX: S83.92XA Sprain of unspecified site of left knee, initial encounter (principal); G43.909 Migraine, unspecified, not intractable, without status migrainosus; Z90.89 Acquired absence of other organs; Z79.2 Long term (current) use of antibiotics; Z79.899 Other long term (current) drug therapy; X50.1XXA Overexertion from prolonged static or awkward postures, initial encounter; Y93.89 Activity, other specified; Y92.89 Other specified places as the place of occurrence of the external cause; Y99.8 Other external cause status
CPT/HCPCS: A4606; A4663

== ENCOUNTER 2024-06-07 12:17 | Emergency (ER) | payer OTHER ==
[~2024-06-07] VITALS: Ht 167.6 cm; Wt 99.8 kg
[2024-06-07 13:35] VITALS: BP 144/87; O2SAT 98
== END 2024-06-07 13:35 | disposition home or self-care (01) ==
LOC: ER 12:17
DX: J34.0 Abscess, furuncle and carbuncle of nose (principal); G43.909 Migraine, unspecified, not intractable, without status migrainosus; Z90.89 Acquired absence of other organs; Z79.899 Other long term (current) drug therapy; Z88.7 Allergy status to serum and vaccine
CPT/HCPCS: A4606; A4663

== ENCOUNTER 2024-12-15 21:20 | Inpatient (IN) | payer OTHER ==
[~2024-12-15] VITALS: Ht 170.2 cm; Wt 133.8 kg
[2024-12-15 22:08] LABS: BASOPHILS # (AUTO) 0.1 K/UL (0.0-0.2); BASOPHILS % (AUTO) 0.9 % (0.0-2.0); EOSINOPHILS # (AUTO) 0.3 K/uL (0.0-0.7); EOSINOPHILS % (AUTO) 2.1 % (0.0-7.0); HEMATOCRIT 42.5 % (31.2-41.9); HEMOGLOBIN 14.1 g/dL (10.9-14.3); LYMPHOCYTES # (AUTO) 4.1 K/uL (0.8-4.8); MEAN CORPUSCULAR HEMOGLOBIN 27.1 uug (24.7-32.8); MEAN CORPUSCULAR HGB CONC 33 g/dL (32.3-35.6); MEAN CORPUSCULAR VOLUME 81.5 fL (75.5-95.3); MONOCYTES # (AUTO) 1.2 K/uL (0.1-1.30); MONOCYTES % (AUTO) 10.3 % (0.0-11.0); NEUTROPHILS # (AUTO) 6.3 K/uL (1.8-8.9); NEUTROPHILS % (AUTO) 52.7 % (38.5-71.5); PLATELET COUNT (AUTO) 191 K/uL (179-408); RED BLOOD CELL COUNT(AUTO) 5.21 MIL/uL (3.63-4.92); RED CELL DISTRIBUTION WIDTH 13.9 % (12.3-17.7); WHITE BLOOD COUNT (AUTO) 11.9 K/uL (3.8-11.8)
[2024-12-15] MEDS ORDERED: hydrOXYzine HCL 25 MG TABLET ONE (22:08)
[2024-12-15] MEDS: hydrOXYzine HCL 25 MG TABLET PO ONE (22:10)
[2024-12-15] MEDS: IV NORMAL SALINE 500 ML BAG IV ONE (22:10)
[2024-12-15 22:26] LABS: CALCIUM 8.1 mg/dL (8.5-10.1); CREATININE 0.6 mg/dL (0.6-1.3); POTASSIUM 4.1 mmol/L (3.5-5.1)
[2024-12-15 22:27] LABS: DIFFERENTIAL COMMENT 1
[2024-12-15 22:32] LABS: ALBUMIN 3.5 g/dL (3.4-5.0); BILIRUBIN,TOTAL 0.3 mg/dL (0.2-1.0); MAGNESIUM 2.2 mg/dL (1.8-2.4); TOTAL PROTEIN, SERUM 7.2 g/dL (6.4-8.2)
[2024-12-15] MEDS ORDERED: DILTIAZEM HCL 25 MG IV ONE (22:46)
[2024-12-15 22:56] LABS: THYROID STIMULATING HORMONE 2.827 mIU/mL (0.358-3.740)
[2024-12-15] MEDS: DILTIAZEM HCL 25 MG IV IV ONE (22:58)
[2024-12-16] VITALS (19 sets, daily range): BP systolic 78–142; BP diastolic 61–105; TEMP 97.7–97.8; O2SAT 86–99
[2024-12-16] MEDS ORDERED: DILTIAZEM HCL 25 MG IV ONE ×2 (00:09→00:37)
[2024-12-16] MEDS ORDERED: RIME75TA PO (00:22)
[2024-12-16] MEDS ORDERED: IBUP100T54 PO (00:22)
[2024-12-16] MEDS ORDERED: AMLO-212 PO (00:22)
[2024-12-16] MEDS: DILTIAZEM HCL 25 MG IV IV ONE (00:23)
[2024-12-16] MEDS: DILTIAZEM HCL IV 125 MG in IV NORMAL SALINE 100 ML IV PRN (00:56)
[2024-12-16] MEDS ORDERED: DILTIAZEM HCL IV 125 MG in IV NORMAL SALINE 100 ML IV PRN ×2 (01:15)
[2024-12-16] MEDS ORDERED: MAGNESIUM HYDROXIDE 30 ML LIQUID UDC PO PRN (01:15)
[2024-12-16] MEDS ORDERED: ONDANSETRON 4 MG/2 ML VIAL IV PRN (01:15)
[2024-12-16] MEDS ORDERED: REMEDY ESSENTIAL ZINC PASTE 113 GM TP PRN (01:15)
[2024-12-16] MEDS ORDERED: LORAZEPAM 2 MG/1 ML VIAL ONE (01:39)
[2024-12-16] MEDS: LORAZEPAM 2 MG/1 ML VIAL IV ONE (01:47)
[2024-12-16] MEDS ORDERED: ENOXAPARIN SODIUM 40 MG/0.4 ML DISP.SYRIN SQ ONE (01:57)
[2024-12-16] MEDS: ENOXAPARIN SODIUM 40 MG/0.4 ML DISP.SYRIN SQ SCH ×2 (02:06→20:57)
[2024-12-16] MEDS: IV NS 1000 ML 1,000 ML IV PRN (03:54)
[2024-12-16 04:48] LABS: BASOPHILS # (AUTO) 0.1 K/UL (0.0-0.2); BASOPHILS % (AUTO) 0.8 % (0.0-2.0); EOSINOPHILS # (AUTO) 0.2 K/uL (0.0-0.7); EOSINOPHILS % (AUTO) 2.3 % (0.0-7.0); HEMATOCRIT 39.8 % (31.2-41.9); HEMOGLOBIN 13.6 g/dL (10.9-14.3); LYMPHOCYTES # (AUTO) 3.3 K/uL (0.8-4.8); MEAN CORPUSCULAR HEMOGLOBIN 27.7 uug (24.7-32.8); MEAN CORPUSCULAR HGB CONC 34 g/dL (32.3-35.6); MEAN CORPUSCULAR VOLUME 81.2 fL (75.5-95.3); MONOCYTES # (AUTO) 0.8 K/uL (0.1-1.30); MONOCYTES % (AUTO) 7.9 % (0.0-11.0); NEUTROPHILS # (AUTO) 5.9 K/uL (1.8-8.9); PLATELET COUNT (AUTO) 178 K/uL (179-408); RED BLOOD CELL COUNT(AUTO) 4.91 MIL/uL (3.63-4.92); RED CELL DISTRIBUTION WIDTH 13.9 % (12.3-17.7); WHITE BLOOD COUNT (AUTO) 10.4 K/uL (3.8-11.8)
[2024-12-16 04:53] LABS: CALCIUM 7.7 mg/dL (8.5-10.1); CREATININE 0.6 mg/dL (0.6-1.3); POTASSIUM 3.7 mmol/L (3.5-5.1)
[2024-12-16] MEDS ORDERED: AMIODARONE HCL 150 MG/3 ML VIAL IV ONE ×2 (06:06→06:58)
[2024-12-16] MEDS: AMIODARONE HCL IV 150 MG in IV DEXTROSE 5% 100 ML IV ONE (06:15)
[2024-12-16] MEDS: AMIODARONE HCL IV 450 MG in IV DEXTROSE 5% 250 ML IV PRN (07:03)
[2024-12-16] MEDS ORDERED: PANTOPRAZOLE SODIUM 40 MG TABLET.DR PO ONE (07:11)
[2024-12-16] MEDS: PANTOPRAZOLE SODIUM 40 MG TABLET.DR PO SCH (07:20)
[2024-12-16] MEDS ORDERED: ENOXAPARIN SODIUM 40 MG/0.4 ML DISP.SYRIN SQ SCH (11:18)
[2024-12-16 11:45] LABS: *BILIRUBIN,URIN NEGATIVE (NEGATIVE); *CLARITY,URINE CLEAR (CLEAR); *COLOR,URINE YELLOW (YELLOW); *KETONES,URINE NEGATIVE (NEGATIVE); *PROTEIN,URINE NEGATIVE (NEGATIVE); *UROBILINOGEN,URINE 0.2 E.U./dl (NORMAL); LEUKOCYTE ESTERASE ,URINE NEGATIVE (NEGATIVE); NITRITE, URINE NEGATIVE (NEGATIVE); UGLUCOSE NEGATIVE (NEGATIVE)
[2024-12-16 11:50] LABS: *BLOOD, URINE TRACE (NEGATIVE)
[2024-12-16 11:55] LABS: BACTERIA,URINE FEW /HPF (NONE SEEN); SQUAMOUS EPITHELIAL CELL,UR FEW /HPF (NONE SEEN); WBC,URINE 0-3 /HPF (0-3)
[2024-12-16] MEDS ORDERED: LORA0.5T48 PO (14:05)
[2024-12-16] MEDS: ALPRAZOLAM 0.5 MG TABLET PO PRN (15:05)
[2024-12-16] MEDS ORDERED: ALPRAZOLAM 0.5 MG TABLET ONE (23:08)
[2024-12-17] VITALS (12 sets, daily range): BP systolic 99–146; BP diastolic 61–95; TEMP 97.6–98.4; O2SAT 71–98
[2024-12-17 06:02] LABS: BASOPHILS # (AUTO) 0.1 K/UL (0.0-0.2); EOSINOPHILS # (AUTO) 0.3 K/uL (0.0-0.7); EOSINOPHILS % (AUTO) 3.8 % (0.0-7.0); HEMATOCRIT 40.7 % (31.2-41.9); HEMOGLOBIN 13.8 g/dL (10.9-14.3); LYMPHOCYTES # (AUTO) 2.3 K/uL (0.8-4.8); LYMPHOCYTES % (AUTO) 26.2 % (20.5-51.5); MEAN CORPUSCULAR HEMOGLOBIN 27.4 uug (24.7-32.8); MEAN CORPUSCULAR HGB CONC 34 g/dL (32.3-35.6); MEAN CORPUSCULAR VOLUME 81.1 fL (75.5-95.3); MONOCYTES # (AUTO) 0.7 K/uL (0.1-1.30); MONOCYTES % (AUTO) 7.6 % (0.0-11.0); NEUTROPHILS # (AUTO) 5.5 K/uL (1.8-8.9); NEUTROPHILS % (AUTO) 61.4 % (38.5-71.5); PLATELET COUNT (AUTO) 175 K/uL (179-408); RED BLOOD CELL COUNT(AUTO) 5.02 MIL/uL (3.63-4.92); RED CELL DISTRIBUTION WIDTH 13.9 % (12.3-17.7)
[2024-12-17 06:09] LABS: DIFFERENTIAL COMMENT 1
[2024-12-17 06:13] LABS: CALCIUM 8.2 mg/dL (8.5-10.1); CREATININE 0.7 mg/dL (0.6-1.3); PHOSPHOROUS 3.1 mg/dL (2.5-4.9); POTASSIUM 3.5 mmol/L (3.5-5.1)
[2024-12-17] MEDS: ACETAMINOPHEN 325 MG TABLET PO PRN (13:58)
[2024-12-17 15:09] LABS: *BILIRUBIN,URIN NEGATIVE (NEGATIVE); *CLARITY,URINE CLEAR (CLEAR); *COLOR,URINE YELLOW (YELLOW); *KETONES,URINE NEGATIVE (NEGATIVE); *PROTEIN,URINE NEGATIVE (NEGATIVE); *UROBILINOGEN,URINE 0.2 E.U./dl (NORMAL); LEUKOCYTE ESTERASE ,URINE NEGATIVE (NEGATIVE); NITRITE, URINE NEGATIVE (NEGATIVE); PH,URINE 6.5 (5.0-8.0); UGLUCOSE NEGATIVE (NEGATIVE)
[2024-12-17 15:10] LABS: *BLOOD, URINE TRACE (NEGATIVE); BACTERIA,URINE FEW /HPF (NONE SEEN); SQUAMOUS EPITHELIAL CELL,UR FEW /HPF (NONE SEEN); WBC,URINE 0-3 /HPF (0-3)
[2024-12-17 15:12] LABS: *URINE HCG, QUAL NEGATIVE (NEGATIVE)
[2024-12-17] MEDS: CLINDAMYCIN HCL 300 MG CAPSULE PO SCH (16:37)
[2024-12-17] MEDS: METOPROLOL TARTRATE 50 MG TABLET PO SCH (20:08)
[2024-12-17] MEDS ORDERED: CLINDAMYCIN HCL 300 MG CAPSULE PO SCH (22:00)
[2024-12-18 00:16] VITALS: BP 99/55; TEMP 98.2; O2SAT 96
[2024-12-18 05:16] VITALS: BP 120/85; TEMP 97.6; O2SAT 97
[2024-12-18 07:26] LABS: BASOPHILS # (AUTO) 0.1 K/UL (0.0-0.2); BASOPHILS % (AUTO) 0.8 % (0.0-2.0); EOSINOPHILS # (AUTO) 0.3 K/uL (0.0-0.7); EOSINOPHILS % (AUTO) 3.8 % (0.0-7.0); HEMATOCRIT 43.2 % (31.2-41.9); HEMOGLOBIN 14.8 g/dL (10.9-14.3); LYMPHOCYTES # (AUTO) 2.3 K/uL (0.8-4.8); LYMPHOCYTES % (AUTO) 29.3 % (20.5-51.5); MEAN CORPUSCULAR HEMOGLOBIN 27.7 uug (24.7-32.8); MEAN CORPUSCULAR HGB CONC 34 g/dL (32.3-35.6); MEAN CORPUSCULAR VOLUME 80.7 fL (75.5-95.3); MONOCYTES # (AUTO) 0.6 K/uL (0.1-1.30); MONOCYTES % (AUTO) 7.4 % (0.0-11.0); NEUTROPHILS # (AUTO) 4.7 K/uL (1.8-8.9); NEUTROPHILS % (AUTO) 58.7 % (38.5-71.5); PLATELET COUNT (AUTO) 179 K/uL (179-408); RED BLOOD CELL COUNT(AUTO) 5.36 MIL/uL (3.63-4.92)
[2024-12-18 07:32] LABS: DIFFERENTIAL COMMENT 1
[2024-12-18 07:33] LABS: CALCIUM 8.8 mg/dL (8.5-10.1); CREATININE 0.6 mg/dL (0.6-1.3)
[2024-12-18 07:35] LABS: POTASSIUM 4.4 mmol/L (3.5-5.1)
[2024-12-18 07:39] VITALS: BP 134/79; TEMP 98.1; O2SAT 97
[2024-12-18] MEDS: METOPROLOL SUCCINATE XL 50 MG TAB.SR.24H PO SCH (09:29)
[2024-12-18 12:00] VITALS: BP 152/104; TEMP 98.3; O2SAT 98
[2024-12-18 13:47] VITALS: BP 114/70; O2SAT 98
[2024-12-18] MEDS ORDERED: RIVA10TA PO (13:47)
[2024-12-18] MEDS ORDERED: METO-357 PO (13:47)
[2024-12-18] MEDS ORDERED: CLIN300C12 PO (13:51)
[2024-12-18] MEDS: RIVAROXABAN 10 MG TABLET PO SCH (17:13)
== END 2024-12-18 17:30 | disposition home or self-care (01) | DRG 201 ==
LOC: ER 21:21 → DOU3 12-16 07:10 → CCU 12-16 11:03 → TELE3 12-17 14:21
PROVIDERS: ADMIT Nurse Practitioner Family; ATTEND Nurse Practitioner Acute Care
DX: I48.0 Paroxysmal atrial fibrillation (principal); I50.30 Unspecified diastolic (congestive) heart failure; I50.9 Heart failure, unspecified; I95.2 Hypotension due to drugs; I11.0 Hypertensive heart disease with heart failure; E66.9 Obesity, unspecified; G43.909 Migraine, unspecified, not intractable, without status migrainosus; G47.33 Obstructive sleep apnea (adult) (pediatric); F41.9 Anxiety disorder, unspecified; T46.1X5A Adverse effect of calcium-channel blockers, initial encounter; Y92.238 Other place in hospital as the place of occurrence of the external cause; L03.113 Cellulitis of right upper limb; Z68.42 Body mass index [BMI] 45.0-49.9, adult
CPT/HCPCS: 36415; 71045; 83735; 84100; 84443; 84484; 84703; 85025; 87086; 93005; 93307; A4663; G0378; J0282; J1650; J2060; J3490; J7040; J7050